=== PATIENT | male | born 1985 | race Two or more races ===

== ENCOUNTER 2018-06-23 21:07 | Emergency (ER) | payer MEDICARE, MEDICAID ==
--- NOTE | 2018-06-23 22:02 | ED PDOC ---
HPI: Psych/Substance Abuse Time Seen by Provider: 06/23/18 21:25 Chief Complaint (Nursing): Psychiatric Evaluation Chief Complaint (Provider): Psychiatric Evaluation History Per: Patient History/Exam Limitations: no limitations Additional Complaint(s): 32 year old male presents to the ER via PD for bizarre behavior and complaining of an allergic reaction. Patient reports the correction has been putting shellfish in his chicken because he is allergic to shellfish. Patient also states he has scallops reproducing in his body and feels like his body is itchy. PMD: none provided Past Medical History Reviewed: Historical Data, Nursing Documentation, Vital Signs Vital Signs: Last Vital Signs Temp 99.5 F 06/23/18 21: Pulse 107 H 06/23/18 21: Resp 20 06/23/18 21: BP 147/91 H 06/23/18 21: Pulse Ox 98 06/23/18 21:26 Primary Care Provider: DoctorCornelia - Medical History PMH: Bipolar Disorder - Surgical History Surgical History: No Surg Hx - Family History Family History: States: Unknown Family Hx - Social History Current smoker - smoking cessation education provided: Yes Alcohol: None Drugs: Denies - Home Medications Home Medications: Ambulatory Orders Medication Instructions Recorded DiphenhydrAMINE [Benadryl] 50 mg PO Q6H PRN #15 cap 06/23/18 Famotidine [Pepcid] 20 mg PO BID #20 tab 06/23/18 - Allergies Allergies/Adverse Reactions: Allergies Allergy/AdvReac Type Severity Reaction Status Date / Time Penicillins Allergy RASH Verified 06/23/18 21:26 shellfish derived Allergy RASH Verified 06/23/18 21:26 Review of Systems ROS Statement: Except As Marked, All Systems Reviewed And Found Negative Skin: Positive for: Other (Allergic reaction) Physical Exam - Reviewed Nursing Documentation Reviewed: Yes Vital Signs Reviewed: Yes - Physical Exam Appears: Positive for: No Acute Distress (Speaking full sentences) Head Exam: Positive for: ATRAUMATIC, NORMOCEPHALIC Skin: Positive for: Normal Color, Warm, Dry Eye Exam: Positive for: Normal appearance Neck: Positive for: Normal, Painless ROM Cardiovascular/Chest: Positive for: Regular Rate, Rhythm Respiratory: Positive for: Normal Breath Sounds. Negative for: Wheezing, Respiratory Distress Extremity: Positive for: Normal ROM Neurological/Psych: Positive for: Awake, Alert, Normal Tone - ECG O2 Sat by Pulse Oximetry: 98 (RA) Pulse Ox Interpretation: Normal Medical Decision Making Medical Decision Making: Initial Impression: Allergic reaction by history Initial Plan: --Benadryl 25mg PO --Pepcid 40mg PO --Crisis evaluation Benadryl and Pepcid ordered for allergic reaction. Pt cleared by Crisis for discharge. Scribe Attestation: Documented by Stuart Cobian acting as a scribe for Gabriela Mann MD. Provider Scribe Attestation: All medical record entries made by the Scribe were at my direction and personally dictated by me. I have reviewed the chart and agree that the record accurately reflects my personal performance of the history, physical exam, medical decision making, and the department course for this patient. I have also personally directed, reviewed, and agree with the discharge instructions and disposition. Disposition - Clinical Impression Clinical Impression: Bipolar disorder, Allergic reaction - Disposition Disposition: Routine/Home Disposition Time: 22:37 Condition: STABLE Additional Instructions: FOLLOW-UP WITH PMD WITHIN 2 DAYS FOR REEVALUATION. Prescriptions: DiphenhydrAMINE [Benadryl] 50 mg PO Q6H PRN #15 cap PRN Reason: Rash Famotidine [Pepcid] 20 mg PO BID #20 tab Instructions: Food Allergy, Bipolar Disorder Forms: [employer] (Dutch)
[2018-06-24 00:13] VITALS: BP 132/86; PULSE 88; RESP 18; TEMP 98.8
[2018-06-24 11:17] VITALS: O2SAT 98
== END 2018-06-24 00:08 | disposition home or self-care (01) ==
LOC: H.ER 21:07
DX: F31.9 Bipolar disorder, unspecified (principal); T78.40XA Allergy, unspecified, initial encounter; F17.200 Nicotine dependence, unspecified, uncomplicated; Z88.0 Allergy status to penicillin

== ENCOUNTER 2018-07-07 16:25 | Emergency (ER) | payer MEDICARE, MEDICAID ==
[2018-07-07 16:35] VITALS: RESP 16
--- NOTE | 2018-07-07 17:53 | ED PDOC ---
Lower Extremity Pain/Injury Time Seen by Provider: 07/07/18 16:39 Chief Complaint (Nursing): Lower Extremity Problem/Injury Chief Complaint (Provider): Bilateral Lower Extremity Swelling History Per: Patient History/Exam Limitations: clinical condition (bipolar disorder) Onset/Duration Of Symptoms: Days Additional Complaint(s): 32 year old male presents to ED with bilateral lower extremity swelling. He states he began noticing swelling in both of his ankles and legs 2 days ago which he believes to overstimulation from walking. Patient went to [facility] yesterday where he was given IV antibiotics and Ibuprofen for pain but no evaluation of legs was performed and he was discharged this morning. He was not discharged with any prescription for antibiotics or pain medications. Patient comes back in for leg pain but denies SOB, chest pain, recent long distance travel on airplane or vehicle, history of cancer, fever or chills. Additionally, patient states he has an infection because he was not treated properly for his shellfish reaction when he was seen here in ED a couple of weeks ago. Paperwork from hospitalization was reviewed and labs significant for WBC 13.5 Patient changed into gown PMD: none provided Past Medical History Reviewed: Historical Data, Nursing Documentation, Vital Signs Vital Signs: Last Vital Signs Temp 98.3 F 07/07/18 16:34 Pulse 94 H 07/07/18 16:34 Resp 16 07/07/18 16:34 BP 142/78 07/07/18 16:34 Pulse Ox 97 07/07/18 16:34 - Medical History PMH: Anxiety, Bipolar Disorder Denies: Diabetes, Hepatitis, HIV, HTN, Seizures, Sexually Transmitted Disease - Family History Family History: States: Unknown Family Hx - Social History Current smoker - smoking cessation education provided: No Alcohol: None Drugs: Denies - Immunization History Hx Tetanus Toxoid Vaccination: Yes Hx Influenza Vaccination: Yes Hx Pneumococcal Vaccination: Yes - Home Medications Home Medications: Ambulatory Orders Medication Instructions Recorded DiphenhydrAMINE [Benadryl] 50 mg PO Q6H PRN #15 cap 06/23/18 Famotidine [Pepcid] 20 mg PO BID #20 tab 06/23/18 Clindamycin [Cleocin] 450 mg PO TID 7 Days cap 07/07/18 Ibuprofen [Motrin Tab] 600 mg PO Q6 PRN 7 Days tab 07/07/18 - Allergies Allergies/Adverse Reactions: Allergies Allergy/AdvReac Type Severity Reaction Status Date / Time Penicillins Allergy RASH Verified 07/07/18 16:35 shellfish derived Allergy RASH Verified 07/07/18 16:35 Review of Systems ROS Statement: Except As Marked, All Systems Reviewed And Found Negative Constitutional: Negative for: Fever, Chills Cardiovascular: Negative for: Chest Pain Respiratory: Negative for: Shortness of Breath Musculoskeletal: Positive for: Leg Pain (bilateral lower extremity swelling) Physical Exam - Reviewed Nursing Documentation Reviewed: Yes Vital Signs Reviewed: Yes - Physical Exam Appears: Positive for: No Acute Distress Pulses-Dorsalis Pedis (L): 2+ Pulses-Dorsalis Pedis (R): 2+ Extremity: Positive for: Normal ROM (with flexion and extension at ankles bilaterally), Tenderness (on palpation greater on left leg than right leg), Swelling (symmetrical, non pitting bilateral extremities mostly at ankle but up to mid calf ), Other (Bilateral lower extremity erythema up to mid calf. Redness greater on posterior aspect of left lower leg, no drainage noted. ) Neurological/Psych: Positive for: Awake, Alert, Oriented (x3) - ECG O2 Sat by Pulse Oximetry: 97 (RA) Pulse Ox Interpretation: Normal Medical Decision Making Medical Decision Making: Time: 1719 Initial Impression: Initial Plan: --Bilateral lower extremity venous duplex --Toradol 30 mg IM x1 1758 US FINDINGS: COMMON FEMORAL VEIN: Right CFV: Unremarkable. Left CFV: Unremarkable. SUPERFICIAL FEMORAL VEIN: Right SFV: Unremarkable. Left SFV: Unremarkable. POPLITEAL VEIN: Right Popliteal: Unremarkable. Left Popliteal: Unremarkable. POSTERIOR TIBIAL VEIN: Right PTV: Unremarkable. Left PTV: Unremarkable. OTHER FINDINGS: None. IMPRESSION: No evidence of deep venous thrombosis. 2021 Patient was reevaluated and states that pain and swelling have improved. He is medically stable and ready for discharge. Scribe Attestation: Documented by Herb Mckeon, acting as a scribe for Stephanie Whitfield PA-C Provider Scribe Attestation: All medical record entries made by the Scribe were at my direction and personally dictated by me. I have reviewed the chart and agree that the record accurately reflects my personal performance of the history, physical exam, medical decision making, and the department course for this patient. I have also personally directed, reviewed, and agree with the discharge instructions and disposition. Disposition - Clinical Impression Clinical Impression: Cellulitis - Disposition Referrals: [facility] [Outside] Disposition Time: 20:22 Condition: STABLE Additional Instructions: Take full course of antibiotics as prescribed. Take Ibuprofen or Tylenol for pain. Return to ER if you develop fevers, chills, worsening redness or pus drainage. Prescriptions: Clindamycin [Cleocin] 450 mg PO TID 7 Days cap Ibuprofen [Motrin Tab] 600 mg PO Q6 PRN 7 Days tab PRN Reason: Pain, Moderate (4-7) Instructions: Cellulitis (Skin Infection), Adult (DC) Forms: [employer] ([place] Islander) Print Language: BENGALI
--- NOTE | 2018-07-07 19:08 | US ---
Date of service: 07/07/2018 PROCEDURE: Bilateral lower extremity venous duplex Doppler. HISTORY: B/L LE swelling x 2 days COMPARISON: None available. TECHNIQUE: Bilateral common femoral, superficial femoral, popliteal and posterior tibial veins were evaluated. Flow was assessed with color Doppler, compressibility, assessment of phasic flow and augmentation response. FINDINGS: COMMON FEMORAL VEIN: Right CFV: Unremarkable. Left CFV: Unremarkable. SUPERFICIAL FEMORAL VEIN: Right SFV: Unremarkable. Left SFV: Unremarkable. POPLITEAL VEIN: Right Popliteal: Unremarkable. Left Popliteal: Unremarkable. POSTERIOR TIBIAL VEIN: Right PTV: Unremarkable. Left PTV: Unremarkable. OTHER FINDINGS: None. IMPRESSION: No evidence of deep venous thrombosis.
[2018-07-07 20:33] VITALS: BP 135/72; PULSE 85; TEMP 98.6; O2SAT 99
== END 2018-07-07 20:26 | disposition home or self-care (01) ==
LOC: H.ER 16:25
DX: L03.119 Cellulitis of unspecified part of limb (principal); Z88.0 Allergy status to penicillin
CPT/HCPCS: 93970; 96372; 99283; J1885

== ENCOUNTER 2018-07-09 22:20 | Inpatient (IN) | payer MEDICARE, MEDICAID ==
--- NOTE | 2018-07-10 00:58 | ED PDOC ---
Lower Extremity Pain/Injury Time Seen by Provider: 07/09/18 22:28 Chief Complaint (Nursing): Lower Extremity Problem/Injury Chief Complaint (Provider): B/L foot pain History Per: Patient History/Exam Limitations: no limitations Additional Complaint(s): 32 y/o M with hx of bipolar disorder who presents with B/L leg/foot pain for the past couple of days. Pt states that he walks a lot and that the intermediate is not providing him with proper lotions/care. He states that their ships will sail. When questioned further, he continues to re-iterate that the ships will sail. He states that 167 were conceived b/c of a alliance party that he had yesterday. Of note patient was seen in ED on 07/07/18 for B/L lower extremity cellulitis after being discharged from [facility] in [facility] where is WBCs were 13.5K but not given antibiotics per patient. He admits to taking his Clindamycin as prescribed 2 days ago and Ibuprofen, last dose about 5pm today. Pt denies hx of bipolar disorder stating that he has been falsely diagnosed. Denies SI/HI, auditory or visual hallucinations. Past Medical History Reviewed: Historical Data, Nursing Documentation, Vital Signs Vital Signs: Last Vital Signs Temp 98.6 F 07/09/18 22:22 Pulse 98 H 07/09/18 22:22 Resp 16 07/09/18 22:22 BP 140/88 07/09/18 22:22 Pulse Ox 100 07/09/18 22:22 - Medical History PMH: Bipolar Disorder Denies: Diabetes, Hepatitis, HIV, HTN, Seizures, Sexually Transmitted Disease - Family History Family History: States: Unknown Family Hx - Living Arrangements Living Arrangements: Other (homeless) - Immunization History Hx Tetanus Toxoid Vaccination: Yes Hx Influenza Vaccination: Yes Hx Pneumococcal Vaccination: Yes - Home Medications Home Medications: Ambulatory Orders Medication Instructions Recorded DiphenhydrAMINE [Benadryl] 50 mg PO Q6H PRN #15 cap 06/23/18 Famotidine [Pepcid] 20 mg PO BID #20 tab 06/23/18 Clindamycin [Cleocin] 450 mg PO TID 7 Days cap 07/07/18 Ibuprofen [Motrin Tab] 600 mg PO Q6 PRN 7 Days tab 07/07/18 - Allergies Allergies/Adverse Reactions: Allergies Allergy/AdvReac Type Severity Reaction Status Date / Time Penicillins Allergy RASH Verified 07/07/18 16:35 shellfish derived Allergy RASH Verified 07/07/18 16:35 Review of Systems Constitutional: Negative for: Fever Musculoskeletal: Positive for: Leg Pain Neurological: Negative for: Altered Mental Status, Headache Psych: Negative for: Depression, Suicidal ideation Physical Exam - Reviewed Nursing Documentation Reviewed: Yes Vital Signs Reviewed: Yes - Physical Exam Appears: Positive for: Non-toxic Head Exam: Positive for: ATRAUMATIC Eye Exam: Positive for: Normal appearance Neck: Positive for: Normal, Painless ROM, Supple Cardiovascular/Chest: Positive for: Regular Rate, Rhythm Respiratory: Positive for: Normal Breath Sounds Extremity: Positive for: Capillary Refill ( 2 sec), Other (B/L LE with area of mild erythema at posterior lower left leg with with mild erythema on Right. ). 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 Negative for: Lethargic, Listless, Motor/Sensory Deficits, Facial Droop - ECG O2 Sat by Pulse Oximetry: 100 Medical Decision Making Medical Decision Making: Ibuprofen 600mg PO x 1 Crisis evaluation 23:15: Seen by pond worker, patient will likely be offered admission. Medical workup including CBC, CMP, EKG, CXR, urine drug screen, U/A, serum ETOH. EKG: sinus, HR 96, normal ECG. Pt refusing blood work and to give urine. 00:30: janitorial maintenance worker to discuss admission with patient. Patient endorsed to LAITH Garcia pending labs, urine studies, CXR and disposition. Disposition - Clinical Impression Clinical Impression: Bipolar disorder - Patient ED Disposition Is Patient to be Admitted: Transfer of Care (LATIH Garcia) - Disposition Disposition: Transfer of Care Disposition Time: 00:30 Condition: FAIR
[2018-07-10 01:23] LABS: BASO # 0.1 K/uL (0.0-0.2); EOS # 0.4 K/uL (0.0-0.7); EOS % 4.6 % (0.0-4.0); HEMOGLOBIN 12.7 g/dL (12.0-18.0); LYMPH # 1.8 K/uL (1.0-4.3); LYMPH % 19.9 % (20.0-40.0); MEAN CELL VOLUME 89.5 fl (80.0-94.0); MEAN CORPUSCULAR HEMOGLOBIN 30.2 pg (27.0-31.0); MEAN CORPUSCULAR HGB CONC 33.7 g/dL (33.0-37.0); MEAN PLATELET VOLUME 8.8 fl (7.2-11.7); MONO # 0.7 K/uL (0.0-0.8); NEUT # 6.1 K/uL (1.8-7.0); NEUT % 66.5 % (50.0-75.0); NRBC % 0.1 % (0.0-0.0); RBC 4.19 Mil/uL (4.40-5.90); RED CELL DISTRIBUTION WIDTH 13.5 % (11.5-14.5); WHITE BLOOD COUNT 9.1 K/uL (4.8-10.8)
[2018-07-10 01:25] LABS: URINE BILIRUBIN NEGATIVE (NEGATIVE); URINE BLOOD NEGATIVE (NEGATIVE); URINE CLARITY CLEAR (Clear); URINE COLOR YELLOW (YELLOW); URINE GLUCOSE (UA) NEG (NEGATIVE); URINE LEUKOCYTE ESTERASE NEG Leu/uL (Negative); URINE PROTEIN NEGATIVE (NEGATIVE); URINE UROBILINOGEN 0.2-1.0 mg/dL (0.2-1.0)
[2018-07-10 01:34] LABS: ALB/GLOB RATIO 1.4 (1.0-2.1); ALBUMIN 4.3 g/dL (3.5-5.0); ALT/SGPT 67 U/L (21-72); AST/SGOT 63 U/L (17-59); BLOOD UREA NITROGEN 21 mg/dl (9-20); CALCIUM 8.8 mg/dL (8.4-10.2); GFR NON-AFRICAN AMERICAN > 60
[2018-07-10 01:46] LABS: BARBITURATES, UR NEGATIVE (NEGATIVE); BENZODIAZEPINES, UR NEGATIVE (NEGATIVE); OPIATES, UR NEGATIVE (NEGATIVE); PHENCYCLIDINE, UR NEGATIVE (NEGATIVE)
[2018-07-10 02:56] VITALS: O2SAT 98
[2018-07-10] MEDS ORDERED: Magnesium Hydroxide Susp 30 ml UD PO PRN (04:33)
[2018-07-10] MEDS ORDERED: DiphenhydrAMINE 50 mg/ml Inj IM PRN (04:33)
[2018-07-10] MEDS ORDERED: Alum-Mag Hydrox-Simethicone Susp (30 mL) PO PRN (04:33)
--- NOTE | 2018-07-10 04:51 | PCM.BM ---
Treatment Plan Problems - Problems identified on initial assessmt Altered Thought Process Date Initiated: 07/10/18 Time Initiated: 04:49 Assessment reference: NA Status: Active Agitated/ Aggressive Behavior Date Initiated: 07/10/18 Time Initiated: 04:49 Assessment reference: NA Status: Active Ineffective Impluse Control Date Initiated: 07/10/18 Time Initiated: 04:50 Assessment reference: NA Status: Active Medication nonadherence Date Initiated: 07/10/18 Time Initiated: 04:51 Assessment reference: NA Status: Active Treatment assets and liabiliti Patient Assests: cooperative, self-reliant, ADL independent, negotiates basic needs Patient Liabilities: financial problems, poor support system, substance abuse, other (Homeless) - Milieu Protocol Maintain good personal hygiene: daily Encourage regular showers, every shift Remind patient to perform daily oral care, every shift Assist patient to perform ADL's Conduct patient checks and document Observation sheet: Q15 minutes Maintain personal safety: every shift Educate patient to report safety concerns to staff, every shift Monitor environment for contraband/sharps Medication safety: Monitor for expected outcome, potential side effects: every shift, Assess barriers to learning: every shift, Assess readiness for medication education: every shift
[2018-07-10] MEDS ORDERED: Risperidone M TAB 2 MG PO STA (09:47)
--- NOTE | 2018-07-10 09:47 | RAD ---
Date of service: 07/10/2018 HISTORY: admission COMPARISON: No prior. TECHNIQUE: 1 view obtained. FINDINGS: LUNGS: No active pulmonary disease. PLEURA: No significant pleural effusion identified, no pneumothorax apparent. CARDIOVASCULAR: No aortic atherosclerotic calcification present. Normal cardiac size. No pulmonary vascular congestion. OSSEOUS STRUCTURES: No significant abnormalities. VISUALIZED UPPER ABDOMEN: Normal. OTHER FINDINGS: Three metallic radiodensity seen overlying the left hemidiaphragm/left upper quadrant abdomen felt to be artifacts, potentially from clothing. Clinically correlate. IMPRESSION: No acute cardiopulmonary disease appreciable. Incidental likely artifacts overlying left hemidiaphragm/left upper quadrant abdomen. Clinically correlate.
--- NOTE | 2018-07-10 10:04 | PCM.PSYCH ---
Initial Psychiatric Evaluation - Initial Psychiatric Evaluation Type of Admission: Voluntary Legal Status: Capacity Chief Complaint (in patient's own words): I will take medications if the war starts History of Present Illness and Precipitating Events: pt is 32 ys old male with previous disgnosis of bipolar disorder brought to ER due to disorganized behaviour on the street pt on evaluation presenting with disorganized speech and thought process, reported that he has history of bipolar on the record yet it is the wrong diagnosis, pt reported he has no psychiatric illness, presenting with grandiose delusions stating that he has a high position in the [employer] and that he will be soon participating in a war , pt affect is labile and euphoric , laughing inappropriately with thought blocking and internally preoccupied , rosalina idly psychotic has no insight into illness, stating he will not take medications unless the war starts , which he is in agreement on with the current president denied command hallucinations denied suicidal or homicidal ideation Current Medications: Active Medications Generic Name Dose Route Start Last Admin Trade Name Freq PRN Reason Stop Dose Admin Acetaminophen 650 mg 07/10/18 04:33 Tylenol 325mg Tab PO Q4 PRN Pain, moderate (4-7) Al Hydrox/Mg Hydrox/Simethicone 30 ml 07/10/18 04:33 Maalox Plus 30 Ml PO Q4 PRN Dyspepsia Benztropine Mesylate 1 mg 07/10/18 09:47 Cogentin PO 07/10/18 09:48 STAT STA Benztropine Mesylate 1 mg 07/10/18 21:00 Cogentin PO Q12 LAVELLE Diphenhydramine HCl 50 mg 07/10/18 04:33 Benadryl IM Q6 PRN Extrapyramidal S/S Unable PO Diphenhydramine HCl 50 mg 07/10/18 04:33 Benadryl PO Q6 PRN Extrapyramidal Symptoms Diphenhydramine HCl 50 mg 07/10/18 04:38 Benadryl PO HS PRN Sleep Haloperidol 5 mg 07/10/18 04:33 Haldol PO Q4 PRN Agitation Haloperidol Lactate 5 mg 07/10/18 04:33 Haldol IM Q4 PRN Agitation, Unable to Take PO Lorazepam 2 mg 07/10/18 04:33 Ativan IM Q4 PRN Anxiety/Agitation,Unable PO Lorazepam 1 mg 07/10/18 04:33 Ativan PO Q8 PRN Anxiety/Agitation Magnesium Hydroxide 30 ml 07/10/18 04:33 Milk Of Magnesia PO HS PRN Constipation Nicotine 1 patch 07/10/18 09:46 Nicoderm Cq TD 07/10/18 09:47 STAT STA Nicotine 1 patch 07/11/18 09:00 Nicoderm Cq TD DAILY LAVELLE Risperidone 2 mg 07/10/18 09:47 Risperdal M-Tab PO 07/10/18 09:48 STAT STA Risperidone 2 mg 07/10/18 21:00 Risperdal M-Tab PO Q12 LAVELLE Past Psychiatric History - Past Psychiatric History Explanation of prior treatment: pt poor historian, not giving information History of ETOH/Drug Use: urine positive for cannabis Pertinent Medical Hx (Current Medical&Sleep Prob, Allergies): Allergies Allergy/AdvReac Type Severity Reaction Status Date / Time Penicillins Allergy RASH Verified 07/07/18 16:35 shellfish derived Allergy RASH Verified 07/07/18 16:35 DiphenhydrAMINE [Benadryl] 50 mg PO Q6H PRN #15 cap 06/23/18 Famotidine [Pepcid] 20 mg PO BID #20 tab 06/23/18 Clindamycin [Cleocin] 450 mg PO TID 7 Days cap 07/07/18 Ibuprofen [Motrin Tab] 600 mg PO Q6 PRN 7 Days tab 07/07/18 Mental Status Examination - Personal Presentation Personal Presentation: Looks stated age - Affect Additional comments: labile, euphoric, inappropriate - Motor Activity Motor Activity: Psychomotor Agitation - Reliability in Providing Information Reliability in Providing Information: Poor, due to alteration in thoughts, Poor, due to altered mood - Speech Speech: Disorganized, Tangential - Mood Mood: Anxious - Formal Thought Process Formal Thought Process: Delusions, Paranoia, Loosening of associations, Flight of ideas - Cognitive Functions Orientation: Person, Place Sensorium: Alert Attention/Concentration: Easily distracted Estimate of Intelligence: Below average Judgement: Imparied, as evidence by: Poor judgement, Imparied, as evidence by: Lack of insight into illness - Risk Risk: Elopement, Diminished functioning - Strength & Assets Inventory Strength & Assets Inventory: Life experience - Limitations Additional comments: poor compliance DSM 5 DX - DSM 5 DSM 5 Diagnosis: psychotic disorder rule out bipolar disorder MRE manic severe with psychotic features cannabis abuse - Recommended/Plan of Treatment Treatment Recommendations and Plan of Treatment: pt floridly psychotic and disorganized, refusing medications, has no insight into illness will be referred for screening for involuntary admission start risperidone 2mg bid , cognetin 1mg bid start depakote 500mg bid internal medicine consult
--- NOTE | 2018-07-10 12:09 | CP.PCM.CON ---
History of Present Illness - History of Present Illness History of Present Illness: 32 yo male with hisotyr of Bipolar DO admitted to psyche unit becausae of disorganized behaviour. Review of Systems - Review of Systems All systems: reviewed and no additional remarkable complaints except (aside from those mentioned above, 12 point system review were negative by me) Past Patient History - Past Social History Smoking Status: Heavy Smoker > 10 Cigarettes Daily Chewing Tobacco Use: No Cigar Use: No Alcohol: Occasional Drugs: Cannabis - CARDIAC Hx Cardiac Disorders: No Hx Hypertension: Yes - PULMONARY Hx Tuberculosis: No - NEUROLOGICAL HX Cerebrovascular Accident: No Hx Seizures: No - HEENT Hx HEENT Problems: No - RENAL Hx Chronic Kidney Disease: No - ENDOCRINE/METABOLIC Hx Endocrine Disorders: No - HEMATOLOGICAL/ONCOLOGICAL Hx Cancer: No Hx Human Immunodeficiency Virus (HIV): No - INTEGUMENTARY Hx Dermatological Problems: No - MUSCULOSKELETAL/RHEUMATOLOGICAL Hx Musculoskeletal Disorders: No - GASTROINTESTINAL Hx Gastrointestinal Disorders: No - GENITOURINARY/GYNECOLOGICAL Hx Sexually Transmitted Disorders: No - PSYCHIATRIC Hx Bipolar Disorder: Yes - SURGICAL HISTORY Hx Surgeries: Yes Other/Comment: Right ankle surgery with two screws in place. Right hand surgery - ANESTHESIA Hx Anesthesia: Yes Hx Anesthesia Reactions: No Hx Malignant Hyperthermia: No Meds Allergies/Adverse Reactions: Allergies Allergy/AdvReac Type Severity Reaction Status Date / Time Penicillins Allergy RASH Verified 07/07/18 16:35 shellfish derived Allergy RASH Verified 07/07/18 16:35 - Medications Medications: Current Medications Acetaminophen (Tylenol 325mg Tab) 650 mg PO Q4 PRN PRN Reason: Pain, moderate (4-7) Al Hydrox/Mg Hydrox/Simethicone (Maalox Plus 30 Ml) 30 ml PO Q4 PRN PRN Reason: Dyspepsia Benztropine Mesylate (Cogentin) 1 mg PO Q12 [place] Diphenhydramine HCl (Benadryl) 50 mg IM Q6 PRN PRN Reason: Extrapyramidal S/S Unable PO Diphenhydramine HCl (Benadryl) 50 mg PO Q6 PRN PRN Reason: Extrapyramidal Symptoms Diphenhydramine HCl (Benadryl) 50 mg PO HS PRN PRN Reason: Sleep Divalproex Sodium (Depakote Dr(*Bid*)) 500 mg PO BID [place] Haloperidol (Haldol) 5 mg PO Q4 PRN PRN Reason: Agitation Haloperidol Lactate (Haldol) 5 mg IM Q4 PRN PRN Reason: Agitation, Unable to Take PO Lactic Acid (Lac-Hydrin 12% Lotion (225 G)) 1 applic TOP TID [place] Lorazepam (Ativan) 2 mg IM Q4 PRN PRN Reason: Anxiety/Agitation,Unable PO Lorazepam (Ativan) 1 mg PO Q8 PRN PRN Reason: Anxiety/Agitation Magnesium Hydroxide (Milk Of Magnesia) 30 ml PO HS PRN PRN Reason: Constipation Nicotine (Nicoderm Cq) 1 patch TD DAILY [place] Risperidone (Risperdal M-Tab) 2 mg PO Q12 [place] Physical Exam - Constitutional Appears: No Acute Distress - Head Exam Head Exam: ATRAUMATIC - Eye Exam Eye Exam: absent: Scleral icterus - ENT Exam ENT Exam: Mucous Membranes Moist - Neck Exam Neck exam: Negative for: Meningismus - Respiratory Exam Respiratory Exam: absent: Rales, Rhonchi, Wheezes, Respiratory Distress - Cardiovascular Exam Cardiovascular Exam: REGULAR RHYTHM, +S1, +S2 - GI/Abdominal Exam GI & Abdominal Exam: Soft. absent: Tenderness - Rectal Exam Rectal Exam: Deferred - Extremities Exam Extremities exam: Negative for: pedal edema - Back Exam Back exam: NORMAL INSPECTION - Neurological Exam Neurological exam: Alert, Oriented x3 - Psychiatric Exam Psychiatric exam: Normal Affect - Skin Skin Exam: Dry, Intact Results - Vital Signs Recent Vital Signs: Last Vital Signs Temp 99.1 F 07/10/18 09:00 Pulse 97 H 07/10/18 09:00 Resp 20 07/10/18 09:00 BP 149/94 H 07/10/18 09:00 Pulse Ox 98 07/10/18 02:54 - Labs Result Diagrams: 07/10/18 01:10 07/10/18 01:10 Labs: Laboratory Results - last 24 hr 07/10/18 07/10/18 07/10/18 01:10 01:10 01:10 WBC 9.1 RBC 4.19 L Hgb 12.7 Hct 37.5 MCV 89.5 MCH 30.2 MCHC 33.7 RDW 13.5 Plt Count 254 MPV 8.8 Neut % (Auto) 66.5 Lymph % (Auto) 19.9 L [place] % (Auto) 8.0 Eos % (Auto) 4.6 H Baso % (Auto) 1.0 Neut # (Auto) 6.1 Lymph # (Auto) 1.8 Worth # (Auto) 0.7 Eos # (Auto) 0.4 Baso # (Auto) 0.1 Sodium 141 Potassium 4.0 Chloride 106 Carbon Dioxide 27 Anion Gap 12 BUN 21 H Creatinine 0.9 Est GFR ( Amer) > 60 Est GFR (Non-Af Amer) > 60 Random Glucose 97 Calcium 8.8 Total Bilirubin 0.4 AST 63 H ALT 67 Alkaline Phosphatase 56 Total Protein 7.5 Albumin 4.3 Globulin 3.2 Albumin/Globulin Ratio 1.4 Urine Color Urine Clarity Urine pH Ur Specific [place] Urine Protein Urine Glucose (UA) Urine Ketones Urine Blood Urine Nitrate Urine Bilirubin Urine Urobilinogen Ur Leukocyte Esterase Urine RBC (Auto) Urine Microscopic WBC Urine Opiates Screen Negative Urine Methadone Screen Negative Ur Barbiturates Screen Negative Ur Phencyclidine Scrn Negative Ur Amphetamines Screen Negative U Benzodiazepines Scrn Negative U Oth Cocaine Metabols Negative U Cannabinoids Screen Positive H Alcohol, Quantitative < 10 07/10/18 01:10 WBC RBC Hgb Hct MCV MCH MCHC RDW Plt Count MPV Neut % (Auto) Lymph % (Auto) Worth % (Auto) Eos % (Auto) Baso % (Auto) Neut # (Auto) Lymph # (Auto) Worth # (Auto) Eos # (Auto) Baso # (Auto) Sodium Potassium Chloride Carbon Dioxide Anion Gap BUN Creatinine Est GFR ( Amer) Est GFR (Non-Af Amer) Random Glucose Calcium Total Bilirubin AST ALT Alkaline Phosphatase Total Protein Albumin Globulin Albumin/Globulin Ratio Urine Color Yellow Urine Clarity Clear Urine pH 5.0 Ur Specific [place] 1.031 H Urine Protein Negative Urine Glucose (UA) Neg Urine Ketones Negative Urine Blood Negative Urine Nitrate Negative Urine Bilirubin Negative Urine Urobilinogen 0.2-1.0 Ur Leukocyte Esterase Neg Urine RBC (Auto) 2 Urine Microscopic WBC 1 Urine Opiates Screen Urine Methadone Screen Ur Barbiturates Screen Ur Phencyclidine Scrn Ur Amphetamines Screen U Benzodiazepines Scrn U Oth Cocaine Metabols U Cannabinoids Screen Alcohol, Quantitative Assessment & Plan (1) Disorganized behavior Status: Acute Comment: psyche is managing
[2018-07-10] MEDS: Divalproex 500 mg DR(BID formulation) PO SCH (17:42)
--- NOTE | 2018-07-10 17:43 | CARD ---
APPROVED REPORT Date of service: 07/09/2018 EKG Measurement Heart [id number] <Conclusion> Normal sinus rhythm Normal ECG
[2018-07-10] MEDS: Risperidone M TAB 2 MG PO SCH (21:15)
[2018-07-11 09:30] VITALS: RESP 18
[2018-07-11] MEDS: Divalproex 500 mg DR(BID formulation) PO SCH ×2 (09:55→17:55)
[2018-07-11] MEDS: Risperidone M TAB 2 MG PO SCH ×2 (09:56→20:41)
--- NOTE | 2018-07-11 13:27 | PCM.PYCHDC ---
Mental Status Examination - Mental Status Examination Orientation: Person, Place, Situation, Time Memory: Intact Mood: Euphoric Affect: Broad, Other (Labile) Speech: Pressured Attention: Poor Concentration: Poor Association: Loose Formal Thought Process: Delusions, Paranoia, Loosening of associations Description of patient's judgement and insight: Poor I/J Psychotic Thoughts and Behaviors: +Grandiose, paranoid, delusional Suicidal Ideation: No Current Homicidal Ideation?: No Discharge Summary - Discharge Note Reason for Hospitalization: As per initial HPI: pt is 32 ys old male with previous disgnosis of bipolar disorder brought to ER due to disorganized behaviour on the street pt on evaluation presenting with disorganized speech and thought process, reported that he has history of bipolar on the record yet it is the wrong diagnosis, pt reported he has no psychiatric illness, presenting with grandiose delusions stating that he has a high position in the [employer] and that he will be soon participating in a war , pt affect is labile and euphoric , laughing inappropriately with thought blocking and internally preoccupied , floridly psychotic has no insight into illness, stating he will not take medications unless the war starts , which he is in agreement on with the current president denied command hallucinations denied suicidal or homicidal ideation Consultations:: List each consultation separately and include: 1. Reason for request. 2. Findings. 3. Follow-up Consultations: Medicine consult Summary of Hospital Course include:: 1. Description of specific treatment plan utilized for patients during their course of treatmen. 2. Summarize the time- course for resolution of acute symptoms and/or regressed behaviors. 3. Describe issues identified and worked on during hospitalization. 4. Describe medication utilized. 5. Describe medical problems identified and treated. 6. Reassessment of suicide risk Summary of Hospital Course: Patient was admitted to the psychiatry unit. Individual and group therapy were offered. Patient was started on Risperdal, Depakote and Cogentin. Patient submitted a 48 hr letter, was screened for involuntary psychiatric admission, accepted and will be transferred. - Final Diagnosis (DSM 5) Condition upon Discharge: STABLE DSM 5: Bipolar Disorder w/ Psychotic Features Disposition: Trans to Other Acute Care Hosp Follow-up Treatment Plan: Transfer for involuntary psychiatric admission - Antipsychotic Medications Pt discharged on 2 or more routine antipsychotic medications: No
[2018-07-11 18:33] VITALS: BP 154/90; PULSE 97; TEMP 97.1
== END 2018-07-11 20:40 | DRG 885 ==
LOC: H.ER 22:20 → H.ERHOLD 07-10 03:35 → H.PSYCH 07-10 04:28
PROVIDERS: ADMIT Psychiatry & Neurology Psychiatry; ATTEND Psychiatry & Neurology Psychiatry
PROC: GZHZZZZ Group Psychotherapy (ICD-10-PCS; principal; 2018-07-10)
DX: F31.9 Bipolar disorder, unspecified (principal); I10 Essential (primary) hypertension; Z59.0 Homelessness; F17.210 Nicotine dependence, cigarettes, uncomplicated; Z88.0 Allergy status to penicillin; Z91.013 Allergy to seafood